=== PATIENT | female | born 1995 | race Two or more races ===

== ENCOUNTER → 2018-08-27 | Outpatient (CLI) | payer BC ==
[~2018-08-27] MED LIST: SINCALIDE (KINEVAC) 5 MCG ONE
== END | disposition home or self-care (01) ==
LOC: PETCFH 13:45
PROVIDERS: ATTEND Family Medicine
DX: R10.11 Right upper quadrant pain (principal)
CPT/HCPCS: 76700; 78227; A9537; J2805